=== PATIENT | female | born 1955 | race Caucasian/White ===

== ENCOUNTER 2016-12-03 07:30 | Observation (INO) | payer OTHER ==
[~2016-12-03] VITALS: Ht 157.5 cm; Wt 68.0 kg
[2016-12-03] MEDS ORDERED: PROPOFOL 200 MG/20 ML AMP IV ONE (07:51)
[2016-12-03] MEDS ORDERED: KETOROLAC TROMETHAMINE 60 MG/2 ML (IM) VIAL IM ONE (07:51)
[2016-12-03] MEDS ORDERED: ePHEDrine/NS 25 MG/5 ML SYR IV ONE (07:51)
[2016-12-03] MEDS ORDERED: NEOSTIGMINE 3 MG/3 ML SYR IV ONE (07:51)
[2016-12-03] MEDS ORDERED: ONDANSETRON HCL 4 MG/2 ML VIAL IV PUSH ONE (07:52)
[2016-12-03] MEDS ORDERED: metroNIDAZOLE 500 MG INJ 100 ML IV ONE (08:13)
[2016-12-03] MEDS ORDERED: ceFAZolin 2 GM PREMIX 50 ML ONE (08:13)
[2016-12-03] MEDS ORDERED: AMOX875T PO (08:16)
[2016-12-03] MEDS ORDERED: [UNRECOGNIZED DRUG - CODE] PO (08:16)
[2016-12-03] MEDS ORDERED: ACYC200C66 PO (08:16)
[2016-12-03] MEDS ORDERED: PROG100C PO (08:16)
[2016-12-03 08:23] VITALS: BP 100/64; PULSE 74; RESP 16; TEMP 97.7; O2SAT 95
[2016-12-03 08:41] LABS: AUTOMATED NEUTROPHIL # 3.8 TH/MM3 (1.8-7.7); BASOPHIL % 0.3 % (0.0-2.0); EOSINOPHIL # 0.2 TH/MM3 (0-0.4); EOSINOPHIL % 3.6 % (0.0-4.0); HEMATOCRIT 35.6 % (35.0-46.0); HEMO FLAGS DIFF FINAL; LYMPHOCYTE # 1.8 TH/MM3 (1.0-4.8); MEAN CELL VOLUME 87.5 FL (80.0-100.0); MEAN CORPUSCULAR HGB CONC 33.1 % (32.0-36.0); MONO % 7.5 % (0.0-8.0); NEUT % 60.6 % (16.0-70.0); PLATELET COUNT 312 TH/MM3 (150-450); RED BLOOD COUNT 4.07 MIL/MM3 (4.00-5.30); RED CELL DISTRIBUTION WIDTH 13.5 % (11.6-17.2); WHITE BLOOD COUNT 6.3 TH/MM3 (4.0-11.0)
[2016-12-03] MEDS ORDERED: POVIDONE IODINE 5% (ANTISEPSIS KIT) 4 APPLICATIONS EACH NARE PRN (08:45)
[2016-12-03] MEDS ORDERED: ceFAZolin 2 GM PREMIX 50 ML IV SCH (08:45)
[2016-12-03] MEDS ORDERED: METRONIDAZOLE 500 MG/100 ML ISONTONIC SOLN IV SCH (08:45)
[2016-12-03] MEDS ORDERED: INSULIN HUMAN REGULAR 1,000 UNITS/10 ML VIAL SQ PRN (08:45)
[2016-12-03] MEDS ORDERED: CHLORHEXIDINE GLUCONATE 2 % 1 PACK (2 CLOTHS) TOPICAL PRN (08:45)
[2016-12-03] MEDS ORDERED: LACTATED RINGER'S 1000 ML IV PRN (08:45)
[2016-12-03] MEDS ORDERED: METOPROLOL TARTRATE 25 MG TAB PO PRN (08:45)
[2016-12-03] MEDS ORDERED: SODIUM CHLORID 0.9% 500 ML IV PRN (08:45)
[2016-12-03 08:58] LABS: ALKALINE PHOSPHATASE 109 U/L (45-117); TOTAL BILIRUBIN ADULT 0.2 MG/DL (0.2-1.0)
[2016-12-03 09:25] LABS: ALT (GPT) 28 U/L (10-53); AST (GOT) 26 U/L (15-37); INDIRECT BILIRUBIN 0.1 MG/DL (0.0-0.8)
[2016-12-03] MEDS ORDERED: ACETAMINOPHEN 1000 MG/100 ML VIAL IV ONE (09:53)
[2016-12-03] MEDS ORDERED: MIDAZOLAM HCL 2 MG/2 ML VIAL ONE (10:18)
[2016-12-03] MEDS ORDERED: DEXAMETHASONE SOD PHOS 4 MG/ML VIAL ONE (10:18)
[2016-12-03] MEDS ORDERED: BUPIVACAINE/EPINEPHRINE 0.5% 50 ML VIAL INFIL ONE (11:10)
--- NOTE | 2016-12-03 13:14 | EKG ---
Date Performed: 12/03/2016 Time Performed: 08:13:40 PTAGE: 61 years EKG: Sinus rhythm NORMAL ECG NO PREVIOUS TRACING DOCTOR: Fazal Vásquez Interpretating Date/Time 12/03/2016 13:11:42
[2016-12-03] MEDS ORDERED: KETOROLAC TROMETHAMINE 30 MG/ML (IVP) VIAL IVP PRN (13:15)
[2016-12-03] MEDS ORDERED: ONDANSETRON HCL 4 MG/2 ML VIAL IV PRN (13:15)
[2016-12-03] MEDS ORDERED: ACETAMINOPHEN/HYDROcodone 325 MG/5 MG TAB PO PRN (13:15)
[2016-12-03] MEDS ORDERED: SODIUM CHLORIDE 0.9% FLUSH 5 ML FLUSH IVF PRN (13:15)
[2016-12-03] MEDS ORDERED: Post-op Orders (for Pharmacy) MISC XX ONE (13:15)
[2016-12-03] MEDS ORDERED: NALOXONE HCL 0.4 MG/ML AMP IV PRN (13:15)
[2016-12-03] MEDS ORDERED: diphenhydrAMINE HCL 25 MG CAP PO PRN (13:15)
[2016-12-03] MEDS ORDERED: *morphine SULFATE 8 MG/ML PERIprocedure ONLY ONE (13:57)
[2016-12-03] MEDS: PCA - TOTAL MG MORPHINE DELIVERED PER SHIFT SCH ×2 (14:00→20:07)
[2016-12-03] MEDS ORDERED: ACYCLOVIR 200 MG CAP PO PRN (14:45)
[2016-12-03] MEDS: LACTATED RINGER'S 1000 ML INJ 1,000 ML IV SCH (16:00)
[2016-12-03 16:32] VITALS: BP 119/67; PULSE 93; RESP 20; TEMP 97; O2SAT 94
[2016-12-03] MEDS: HYDROmorphone HCL PF 1 MG/ML VIAL IV PUSH PRN (17:30)
[2016-12-03 20:00] VITALS: BP 119/69; PULSE 97; RESP 20; TEMP 97.6; O2SAT 92
[2016-12-03] MEDS: SODIUM CHLORIDE 0.9% FLUSH 5 ML FLUSH IVF SCH (20:06)
[2016-12-03] MEDS: AMOXICILLIN 875 MG TAB PO SCH (20:06)
[2016-12-03 20:53] VITALS: O2SAT 93
[2016-12-03] MEDS: ACETAMINOPHEN/HYDROcodone 325 MG/5 MG TAB PO PRN (21:23)
[2016-12-04] VITALS: BP 113/63; PULSE 99; RESP 20; TEMP 97.8; O2SAT 93
[2016-12-04] MEDS: HYDROmorphone HCL PF 1 MG/ML VIAL IV PUSH PRN (01:15)
[2016-12-04] MEDS: LACTATED RINGER'S 1000 ML INJ 1,000 ML IV SCH (02:22)
[2016-12-04 04:00] VITALS: BP 106/65; PULSE 92; RESP 20; TEMP 97.5; O2SAT 94
[2016-12-04] MEDS: PCA - TOTAL MG MORPHINE DELIVERED PER SHIFT SCH (04:07)
[2016-12-04 08:00] VITALS: BP 101/61; PULSE 88; RESP 18; TEMP 97.3; O2SAT 93
[2016-12-04] MEDS ORDERED: PROGESTERONE MICRONIZED 100 MG PO SCH (09:00)
[2016-12-04] MEDS ORDERED: THYROID 65 MG PO SCH (09:00)
[2016-12-04] MEDS: SODIUM CHLORIDE 0.9% FLUSH 5 ML FLUSH IVF SCH (09:00)
[2016-12-04] MEDS: AMOXICILLIN 875 MG TAB PO SCH (09:07)
[2016-12-04] MEDS: ACETAMINOPHEN/HYDROcodone 325 MG/5 MG TAB PO PRN (09:13)
--- NOTE | 2016-12-04 09:52 | MP ---
cc: ABDI HODGE M.D. DATE OF SURGERY: 12/03/2016 PREOPERATIVE DIAGNOSIS Acute cholecystitis. POSTOPERATIVE DIAGNOSIS Acute cholecystitis. PROCEDURE PERFORMED Laparoscopic cholecystectomy (subtotal). SURGEON Abdi Hodge ANESTHESIA General endotracheal. COMPLICATIONS None. INDICATION FOR PROCEDURE Ms. Medel is a very pleasant 61-year-old female who has had one week of severe right upper quadrant abdominal pain associated with nausea and an episode of emesis. She went to see her primary care doctor, Dr. Tessie Farrell, last week, who was concerned about acute cholecystitis. She sent her for a CT scan of the abdomen and pelvis and started her on oral antibiotics. CT of the abdomen and pelvis confirmed acute cholecystitis. She was referred for immediate surgical evaluation. The patient was seen and evaluated in the office on Saturday. The patient stated that she was feeling better but was still having a fair amount of right upper quadrant pain. She was offered immediate cholecystectomy on Saturday morning. She was agreeable to this. The risks and benefits of laparoscopic and possible open cholecystectomy was discussed with her and she was agreeable. INTRAOPERATIVE FINDINGS The patient had a significantly distended thickened edematous gallbladder that was difficult to manipulate. It contained dark green bile that appeared obstructed. The gallbladder contained multiple large gallstones. The entire gallbladder was markedly edematous and thickened and there was a significant phlegmon around the neck of the gallbladder. We were unable to safely dissect down past the neck of the gallbladder as the phlegmon extended onto the common bile duct. I did not feel comfortable dissecting through the phlegmon so close to the common bile duct for fear of injuring it. We therefore dissected the gallbladder down as far as we could onto the neck and then transected it. All gallstones and the gallbladder were removed. The proximal neck of the gallbladder was carefully inspected. There were no stones noted within the neck. There was no bile leaking from the cystic duct which had obviously been occluded based on the color and consistency of the bile and the gallbladder. DETAILS OF PROCEDURE The patient was identified, brought to the operating room and placed supine on the operating table. After adequate general endotracheal anesthesia was achieved the abdomen was prepped and draped in standard surgical fashion. The supraumbilical space was anesthetized with 0.25% Marcaine. A supraumbilical incision was made. Dissection was carried down through subcutaneous tissue to the midline fascia. The midline fascia was then incised sharply. A finger was then placed in the peritoneal cavity without difficulty. A blunt balloon trocar was inserted and the abdomen was insufflated to 15 mmHg using CO2 gas. Next, two 5 mm trocars were placed in the right upper quadrant after anesthetizing the skin and subcutaneous tissue with 0.25% Marcaine. Attention was directed to the right upper quadrant where the liver and gallbladder were identified. The gallbladder was noted to be markedly edematous and thickened. We were unable to grasp it due to its large size and significant edema. We therefore went ahead and decompressed it with a needle retrieving dark green bile. Once we did this we were able to grasp it somewhat better, although it was extremely thickened. We had to use the [employer] COis grasper in order to hold the distal portion of the gallbladder. Because of the acute inflammatory of the gallbladder and the difficulty in manipulating it, I elected to place a third 5 mm port in the right upper quadrant. With the third port we were able to move the gallbladder a little bit better. Dissection proceeded down at the gallbladder neck where there was noted to be a significant inflammatory process going down. We could visualize the proximal common bile duct and this could be seen going right into the phlegmon. Using a hydrodissection technique we dissected the gallbladder neck down into the phlegmon but could not get through the phlegmon due to the acute thickened inflammatory nature. I therefore elected to take the gallbladder down in a retrograde dome-down technique. The gallbladder was dissected down distally down to again the proximal neck of the gallbladder. We are able to clearly get behind the gallbladder. We identified the cystic artery and the cystic node and I went ahead and clipped the cystic artery proximally. There was a moderate amount of bleeding both from the gallbladder itself and the liver bed due to the acute inflammatory nature. Nursing staff reported about 200 cc of blood loss in the container during this dissection. Once we are able to get the gallbladder completely free circumferentially again we could only get to the neck as the neck dove down into this intense inflammatory phlegmon which could not be dissected. The phlegmon did include the common bile duct which we clearly visualized proximally going right into it. I did not feel comfortable taking down the phlegmon trying to get to the cystic duct and elected to transect the gallbladder at the neck. Using electrocautery Bovie the gallbladder was transected at the neck. A suction device was used to evacuate any remaining bile which was really minimal as we had decompressed the gallbladder at the beginning of the case. The distal gallbladder and stones were then placed into the EndoCatch bag and brought out through the infraumbilical port. The gallbladder was inspected and noted to be extremely thick with multiple large stones. It was sent to pathology for analysis. Next, attention was directed to the proximal gallbladder at the neck. The 30 degrees scope was used to look down into the remaining gallbladder which was very short. There was no evidence of any stones in the proximal gallbladder or the cystic duct. We could not visualize the cystic duct location, however, there was no bile coming forth from the cystic duct. We copiously irrigated and suctioned and again we could get no bile to come out from the proximal neck of the gallbladder at the anticipated location of the cystic duct. At this point again due to the acute inflammatory nature and the fact that it did involve the common bile duct I elected to go ahead and Endoloop the remaining portion of the neck of the gallbladder with a PDS Endoloop. Care was taken to keep the Endoloop away from the common bile duct in order not to compromise it in any way. Once we did this we carefully inspected the liver which was hemostatic. Again no bile was noted to be coming from the remaining neck of the gallbladder. All gallstones had been removed with the gallbladder and there were none spilled during the procedure. The abdomen was then rinsed out with approximately one liter of warm saline solution. Irrigant was noted to be fairly clear without any evidence of blood or bile. The liver bed was inspected a third time and it was completely hemostatic. The Endoloop was inspected and there was no evidence of bile leaking out. The common bile duct was clearly seen and it was intact with no evidence of bile leakage. At this point a 10 mm Deny-Michelle drain was inserted and brought out through one of the 5 mm port sites in the lateral abdominal wall. The drain was placed in the infrahepatic space adjacent to the neck of the gallbladder and the Endoloop. Omentum was then placed up into the right upper quadrant. The abdomen was then carefully desufflated. All trocars were removed under direct vision. The midline fascia was repaired with 0 Vicryl in a [id number] fashion. The skin was closed with 4-0 Vicryl. The patient tolerated the procedure well, was awakened, extubated and brought to Recovery in stable condition. Please note the operative time in this case was in excess of two hours, required us to open additional instrumentation and was well beyond the standard procedure for a laparoscopic cholecystectomy due to the acute inflammatory nature of the gallbladder. MD NADEGE Mack/ADALID /2:39 PM /9:35 AM
[2016-12-04 10:13] VITALS: RESP 18
--- NOTE | 2016-12-04 14:30 | HHI.DS ---
Discharge Summary Admission Date Dec 03, 2016 at 13:16 Discharge Date: Dec 04, 2016 Admitting Diagnosis Brief History This is a 61-year-old female with acute cholecystitis. The patient is brought in for a laparoscopic cholecystectomy. CBC/BMP: 12/03/16 0821 PE at Discharge Alert and awake Cardio: RRR Resp: CTAB Abd: lap sites with minimal bloody drainage; soft; tender at incisions sites; JULIENNE with SS drainage Hospital Course This is a 61-year-old lady who presented to her family medicine doctor will with right upper quadrant abdominal pain. The patient was referred to Dr. Kaplan in the office last Saturday and was set up for a laparoscopic cholecystectomy. The patient tolerated the procedure well. A JULIENNE drain was placed. The patient feels comfortable taking care of the drain herself at home. She was able to tolerate a regular diet. The patient's pain was controlled using oral pain medications. The patient will follow-up in the office on Saturday with Dr. Kaplan for possible drain removal. Pt Condition on Discharge: Good Discharge Disposition: Discharge Home Discharge Instructions DIET: Follow Instructions for: As Tolerated, No Restrictions Activities you can perform: See Additionl Instruction Other Activity Instructions: okay to shower tomorrow Routine drain care Elisabeth Robertson Dec 04, 2016 14:30
== END 2016-12-04 11:20 | disposition home or self-care (01) ==
LOC: HSDC 07:30 → HSDI 13:16 → N07B 16:11
PROVIDERS: ADMIT Surgery Trauma Surgery; ATTEND Surgery Trauma Surgery
PROC: 0FT44ZZ Resection of Gallbladder, Percutaneous Endoscopic Approach (ICD-10-PCS; principal; 2016-12-03 10:52)
DX: K80.12 Calculus of gallbladder with acute and chronic cholecystitis without obstruction (principal); E03.9 Hypothyroidism, unspecified; Z01.810 Encounter for preprocedural cardiovascular examination
CPT/HCPCS: 00790; 47562; 80076; 85025; 88304; 93005; 94150; G0378; J0131; J0690; J1100; J1170; J1885; J2250; J2270; J2405; J2710; J3010; J7120